=== PATIENT | male | born 1970 | race Caucasian/White ===

== ENCOUNTER 2017-12-27 19:52 | Emergency (ER) | payer OTHER ==
[~2017-12-27] VITALS: Ht 185.4 cm; Wt 122.9 kg
[~2017-12-27 19:52] MED LIST: ALBUTEROL S5 MG/1 ML INH; MONTELUKAST SOD10 MG; SINGULAIR10 MG; VENTOLIN HFA18 GM INH
[2017-12-27] MEDS ORDERED: BUPROPION HCL150 M2 PO (20:10)
[2017-12-27] MEDS ORDERED: LOSARTAN-HCTZ1 EAC1 PO (20:10)
--- NOTE | 2017-12-28 13:43 | EKG ---
[facility] [address] [facility] [place], [place] [address] Signed Sinus tachycardia Otherwise normal ECG No previous ECGs available Confirmed by WELLINGTON YAN MD ([id number]) on 12/28/2017 1:42:49 PM Electronically Signed By: WELLINGTON YAN MD 12/28/17 1343 PATIENT NAME: CRISPIN FUENTES LISA Electrocardiogram DATE OF : 66 PHYSICIAN: WELLINGTON YAN MD REPORT #: [id number] REPORT IS CONFIDENTIAL AND NOT TO BE RELEASED WITHOUT AUTHORIZATION
== END 2017-12-27 23:03 | disposition home or self-care (01) ==
LOC: ED 19:52
DX: R07.89 Other chest pain (principal); R93.8 Abnormal findings on diagnostic imaging of other specified body structures; I10 Essential (primary) hypertension; J45.909 Unspecified asthma, uncomplicated; Z79.899 Other long term (current) drug therapy
CPT/HCPCS: 71045; 80053; 84484; 85025; 85379; 93005; 93010; 99284

== ENCOUNTER 2018-01-17 14:16 | Emergency (ER) | payer OTHER ==
[~2018-01-17] VITALS: Ht 185.4 cm; Wt 119.3 kg
[~2018-01-17 14:16] MED LIST changes: +BUPROPION HCL150 M2 PO; +LOSARTAN-HCTZ1 EAC1 PO
--- NOTE | 2018-01-18 06:59 | EKG ---
[facility] [address] [facility] [place], [place] [address] Signed Normal sinus rhythm Low voltage QRS Borderline ECG When compared with ECG of 27-DEC-2017 19:55, No significant change was found Confirmed by JHON GILMORE MD ([id number]) on 01/18/2018 6:59:49 AM Electronically Signed By: JHON GILMORE MD 01/18/18 0659 PATIENT NAME: CRISPIN FUENTES LISA Electrocardiogram DATE OF : 66 PHYSICIAN: JHON GILMORE MD REPORT #: [id number] REPORT IS CONFIDENTIAL AND NOT TO BE RELEASED WITHOUT AUTHORIZATION
== END 2018-01-17 19:10 | disposition home or self-care (01) ==
LOC: ED 14:16
DX: R22.2 Localized swelling, mass and lump, trunk (principal); I10 Essential (primary) hypertension; J45.909 Unspecified asthma, uncomplicated; Z79.51 Long term (current) use of inhaled steroids; Z79.899 Other long term (current) drug therapy
CPT/HCPCS: 70450; 70496; 70498; 71260; 80053; 81001; 84484; 85025; 85610; 93005; 93010; 99284; Q9967

== ENCOUNTER 2021-04-17 21:35 | Emergency (ER) | payer OTHER ==
[~2021-04-17] VITALS: Ht 185.4 cm; Wt 117.9 kg
[~2021-04-17 21:35] MED LIST changes: -SINGULAIR10 MG; +SINGULAIR10 MG PO
[2021-04-18] MEDS ORDERED: POTASSIUM CHLO20 ME1 PO (00:01)
--- NOTE | 2021-04-18 12:55 | EKG ---
[facility] [address] [facility] [place] [address] Signed Normal sinus rhythm Inferior infarct , age undetermined Abnormal ECG When compared with ECG of 17-JAN-2018 14:26, QT has lengthened Confirmed by WELLINGTON YAN MD ([id number]) on 04/18/2021 12:55:07 PM Electronically Signed By: WELLINGTON YAN MD 04/18/21 1255 PATIENT NAME: SHERITANICHOLASCRISPIN Electrocardiogram DATE OF : 66 PHYSICIAN: WELLINGTON YAN MD REPORT #: [id number] REPORT IS CONFIDENTIAL AND NOT TO BE RELEASED WITHOUT AUTHORIZATION
[2021-04-19] MEDS ORDERED: ADVAIR HFA 230-12 GM INH (12:59)
== END 2021-04-18 03:00 | disposition home or self-care (01) ==
LOC: ED 21:35
DX: U07.1 COVID-19 (principal); J45.909 Unspecified asthma, uncomplicated; E87.6 Hypokalemia; I10 Essential (primary) hypertension; Z79.899 Other long term (current) drug therapy
CPT/HCPCS: 71045; 80053; 84484; 85025; 93005; 93010; 96374; 96375; 96376; 99285-25; C9803; J1100; J3480; M0243; Q0244; U0003

== ENCOUNTER 2021-04-19 12:00 | Inpatient (IN) | payer OTHER ==
[~2021-04-19] VITALS: Ht 185.4 cm; Wt 115.5 kg
[~2021-04-19 12:00] MED LIST changes: +POTASSIUM CHLO20 ME1 PO
--- OUTSIDE RECORDS SUMMARY | 2021-04-19 12:06 | XMS ---
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 Tyrese has no Care Guidelines for this patient. Thierry [facility] (12 MO.) [facility] T[facility] NOTE: Visits indicate total known visits. ED/C VISIT TRACKING (12 MO.) [facility] COMPLAINT: - COVID+,DIFFUCULTY BREATHING 04/17/2021 21:36 LISA Amin OR TYPE: Emergency COMPLAINT: - COUGH,SOB INPATIENT VISIT TRACKING (12 MO.) 09/01/2020 05:58 [facility] [place] TYPE: Cardiac Surgery DIAGNOSES: - Disorders of diaphragm 09/01/2020 00:00 [facility] [place] TYPE: Inpatient DIAGNOSES: - Disorders of diaphragm [email or web address]
[2021-04-19] MEDS ORDERED: ADVAIR HFA 230-12 GM INH (12:59)
--- NOTE | 2021-04-19 19:03 | NUR ---
THIS RN BROUGHT PT FROM THE ED TO THE CCU AT 1725. PT BROUGHT VIA STRETCHER ON 15L O2 NONREBREATHER MASK RECEVING HIS 500ML NS BOLUS ALONG WITH HIS BELONGINGS. PT ABLE TO STAND AND PIVOT FROM THE STRETCHER TO THE CCU BED. PT NOTED TO BECOME SOB, PT HAD TO LAY ON SIDE TO CATCH HIS BREATH. RT IN TO DRAW ABG, PT PLACED ON 15L O2 OXYMASK AFTERWARDS AND WAS ABLE TO MAINTAIN HIS SATURATIONS AT 95%. SPUTUM COLLECTED, AND WAS NOTED TO BE RED. LATER COUGHING FITS PRODUCED BLOODY/RED SPUTUM WELL BROWN SPUTUM. NEW 20G IV PLACED IN L FOREARM AND BLOOD CULTURES COLLECTED FROM RIGHT AND LEFT IV SITES. SCHEDULED MEDICATIONS AND IVF ADMINISTERED ORDERED (SEE MAR). PT ASSESSED, CRACKLES NOTED IN THE BASES BILATERALLY ALONG WITH A RUB ON THE RIGHT SIDE PRESENT MORE IN THE LOWER QUADRANT. PT ACKNOWLEDGES SOB WITH ACTIVITY AND STATES HE HAS A HARD TIME CATCHING HIS BREATH AT TIMES. DURING THIS TIME PT HAD A COUGHING FIT AND HAD TO SIT UP AT THE SIDE OF THE BED DUE TO A VERY PRODUCTIVE COUGH. PT DESATED TO 75% AND WAS PLACED ON THE NONREBREATHER AT 15L, PT THEN COACHED INTO TAKING SLOW AND DEEP BREATHS TO CALM HIM DOWN PT WAS ANXIOUS. HR NOTED TO BE IN THE 120'S AT THIS TIME, SP2 IN THE 89-92% RANGE AND RR IN THE 30-40/MIN RANGE. PT ABLE TO EVENTAULLY CALM DOWN AND LAY BACK IN THE BED, PRN COUGH MEDICATION ADMINISTERED AT THIS TIME (SEE MAR). PT PROVIDED WITH WATER AT THIS TIME AND IS NOW SITTING ON THE BED ON 15L NONREBREATHER, IVF AND IV ABX INFUSING ORDERED. PT REPORTS NO FURTHER NEEDS AT THIS TIME WHEN ASKED, WILL CONTINUE PLAN OF CARE AND GIVE REPORT TO THE NIGHTSHIFT RN TO CONTINUE PLAN OF CARE.
--- NOTE | 2021-04-19 19:05 | NUR ---
DR. YAN UPDATED ON PT ASSESSMENT AND CURRENT CONDITION AND OXYGEN DEMANDS, NEW ORDERS GIVEN TO NOTIFY RT TO PLACE PT ON THE VAPOTHERM. NEW ORDERS TO BE PLACED BY DR. YAN, WILL CONTINUE PLAN OF CARE.
--- NOTE | 2021-04-19 19:07 | NUR ---
RT CALLED AND NOTIFIED ON NEW ORDERS BY DR. YAN FOR PLACING PT ON THE VAPOTHERM, WILL CONTINUE PLAN OF CARE.
--- NOTE | 2021-04-19 19:30 | NUR ---
IN TO CHECK ON PT, PT IS RESTING IN BED WITH HOB UP, ON NRB 15L, RR 28, HR 115 AND SPO2 90%.
--- NOTE | 2021-04-19 19:40 | NUR ---
AWAITING ANXIETY MEDICATIONS RECENTLY ORDERED BY DR YAN TO BE VERIFITED BY PHARMACY. PT INFORMED OF THIS, SPO2 90%, RR 30, HR 110, STATES HE IS FEELING ANXIOUS. ENCOURAGED LONGER BREATHS AND TRYING TO RELAX.
--- NOTE | 2021-04-19 20:00 | NUR ---
ASSESSMENT DONE, LUNGS HAVE RHONCHI THROUGHOUT, DIM IN BASES, RUB HEARD ON RIGHT SIDE AND EXP WHEEZE HEARD THROUGHOUT. PT IS SOMEWHAT ANXIOUS, RESP SHALLOW AND RATE OF 30, EDUCATION DONE REGARDING SLOWING DOWN HIS BREATHING WELL IMPORTANCE OF PRONING.
--- NOTE | 2021-04-19 20:10 | NUR ---
PT TURNED ONTO HIS LEFT SIDE, SPO2 WENT FROM 89% TO 83%, PT EVEN MORE SOB. HAD PT TAKE DEEP BREATHS AND RELAX, SATS SLOWLY UP TO 87%. RT NOTIFIED, WILL COME IN AND SET UP VAPOTHERM.
--- NOTE | 2021-04-19 20:17 | NUR ---
RT IN TO SET UP VAPOTHERM.
--- NOTE | 2021-04-19 20:28 | NUR ---
RT STARTING NEB TREATMENT.
--- NOTE | 2021-04-19 21:22 | NUR ---
PT CALLS TO SAY HIS VAPOTHERM IS STOPPING WORKING. EDUCATED ON TWISTING OF THE TUBING. SPO2 HAS BEEN 93-95%, HR 99, RR 20, MUCH MORE RELAXED AT THIS TIME.
--- NOTE | 2021-04-19 22:19 | NUR ---
CALL LIGHT ON. pt REQUESTED ASSISTANCE TO ROLL TO LEFT SIDE. ASSISTED WITH CABLES. EMPTIED DARK URINE. PROVIDED FRESH WATER O2 SAT 98% ON 35L/100%. CALL LIGHT WITHIN REACH.
--- NOTE | 2021-04-19 23:03 | NUR ---
PT CALLED TO GET UP TO BSC WITH URGE TO HAVE BOWEL MOVEMENT BUT DID NOT HAVE ONE, VOIDED 300ML. SPO2 REMAINED IN 90'S WHILE UP, VAPOTHERM ON AT 35L/100% ALTHOUGH RESP RATE WENT UP TO 34 WITH INCREASED SOB, AND WENT BACK DOWN TO 24 AFTER HE SETTLED BACK INTO BED. HR DID GO UP TO 120 BRIEFLY WHILE UP, THEN BACK DOWN TO 100 IN BED. CALL LIGHT IN HAND.
--- NOTE | 2021-04-20 01:06 | NUR ---
PT CALLS TO ASK FOR ANXIETY MEDICATION, IN TO DO ASSESSMENT AND GIVE PRN VISTARIL WELL A NEB TX. PT HAS SOME PRODUCTIVE COUGHING, SPO2 HAS BEEN 96% ON 35L/100% WITH RR 26 AND HR 105. LUNGS HAVE COARSE CRACKLES IN BASES, RHONCHI THROUGHOUT WELL. POPSICLE GIVEN PER REQUEST.
--- NOTE | 2021-04-20 02:00 | NUR ---
PT GOT UP TO BSC TO HAVE LIQUID BOWEL MOVEMENT, THEN BACK TO BED. SPO2 REMAINED NINETIES WHILE UP. HR 110.
--- NOTE | 2021-04-20 04:23 | NUR ---
PT CALLED TO STATE THAT HE FELT BLOATED, C/O ABD DISTENSION. "ITS BEEN OFF AND ON TODAY". ASSESSMENT DONE, BOWEL SOUNDS HYPERACTIVE. PT REQUESTS LAXATIVE.
--- NOTE | 2021-04-20 05:25 | NUR ---
PT GIVEN PRN MAALOX, HE ALSO GOT UP AND HAD A SMALL FORMED BOWEL MOVEMENT. ASKED IF HE WANTS A NEB TX AND HE STATES YES.
--- NOTE | 2021-04-20 06:26 | NUR ---
PT CALLED TO ASK FOR ANXIETY MEDICINE, WILL GIVEN PRN VISTARIL.
--- NOTE | 2021-04-20 06:46 | NUR ---
PT STATES HE DOES NOT WANT THE ANXIETY PILL, AND THAT HE NEEDS "THE SHOT", EXPLAINED THAT THE IV ATIVAN WAS A ONE TIME ORDER AND HE STATED "THE PILLS DONT DO ANYTHING," AND DID NOT APPEAR HAPPY ABOUT IT.
--- NOTE | 2021-04-20 07:30 | NUR ---
REPORT RECIEVED. PATIENT ASKING FOR MEDICATION TO HELP HIM RELAX. TOLD PATIENT I WOULD TALK TO THE DOCTOR ABOUT THIS.
--- NOTE | 2021-04-20 08:10 | NUR ---
Spoke with Mitchel Yeboah. She requests no visit or call for assessment as pt is sob. Will check tomorrow.
--- NOTE | 2021-04-20 09:00 | NUR ---
PATIENT RESTING IN BED, VITALS CHARTED. PATIENTS NOSTRILS ARE DRY AND IRRITATED, WARM WASHCLOTH PROVIDED TO CLEAN BLOOD ON FACE/LIPS. BREAKFAST PROVIDED, PATIENT APPEARED TO STRUGGLE WITH CUTTING BITES WITH FORK, BUT DIDN'T WANT ASSISTANCE. JOE BUSBY IN ROOM NOW.
--- NOTE | 2021-04-20 09:20 | NUR ---
OOB TO COMMODE TO VOID 225 ML OF KEATON URINE. SPONGE BATH GIVEN WHILE OOB AND DRAW SHEET CHANGED. UPON STANDING TO RETURN TO BED, PATIENT VERY UNSTEADY ON FEET. EXTREMELY SHORT OF BREATH, RR-50.
--- NOTE | 2021-04-20 09:40 | NUR ---
CUETO CATH PLACED W/O DIFFICULTY WITH RETURN OF 350 ML OF CLEAR YELLOW URINE. PATIENT CONTINUE WITH EXTREME SHORTNESS OF BREATH. ASKING FOR MORE CALMING MEDICATION. DR. YAN AWARE.
--- NOTE | 2021-04-20 10:00 | NUR ---
ATIVAN 1 MG IV REPEATED PER ORDERS,
--- NOTE | 2021-04-20 10:38 | NUR ---
REQUESTED RT TO COME AND ASSESS PATIENT PATIENT WORK OF BREATHING IS HARD AND RR-48 TO 50. VAPOTHERM SETTING 40 L AND 80 % FIO2. HAS SEA-SAW RESP PATTERN. PATIENT HAS RECIEVED ATIVAN 1 MG IV TWICE THIS SHIFT. RT TO TALK WITH DR. YAN.
--- NOTE | 2021-04-20 10:43 | NUR ---
PLAN FOR INTABATION.
--- NOTE | 2021-04-20 10:45 | NUR ---
DR. YAN HERE TO ASSESS PATIENT AND TALK WITH HIM ABOUT INTABATION.
--- NOTE | 2021-04-20 11:30 | NUR ---
INTABATED W/O DIFFICULTY BY CECILY SARMIENTO USING SIZE 8 ETT TAPED 24 AT LIP. PCXR CONFIRMED PLACEMENT. PROPOFOL DRIP HUNG AT 30 MCG/KG/MIN. VENT SETTINGS PER RT. VT-650,FIO2-60,AC-16,PEEP=10,PIP-32,ETCO2-66. WILL CONTINUE TO MONITOR.
--- NOTE | 2021-04-20 12:00 | NUR ---
ASSESSMENT DONE. CUETO CATH PATENT AND EMPTIED FOR 450 ML OF CLEAR YELLOW URINE. IVF DC'D. KCL RIDER AND PROPOFOL GTT INFUSING.
--- NOTE | 2021-04-20 12:45 | NUR ---
ORAL SUCTION FOR LARGE AMOUNT OF BLOODY SPUTUM.
--- NOTE | 2021-04-20 13:25 | NUR ---
ABG RESULTS, PH-7.42, PCO2-37.6,PO2-78,HCO3-24.1,SAT-95.6. THESE RESULTS ON VENT SETTINGS OF: TV-480,FIO2-55,PEEP-10,AC-28,PIP-30,ETCO2-48. SUCTIONED FOR MOD AMOUNT OF BLOODY SPUTUM.
--- NOTE | 2021-04-20 14:00 | NUR ---
fentanyl 100 mcg iv given.
--- NOTE | 2021-04-20 14:30 | EKG ---
[facility] [address] [facility] [place] [address] Signed Sinus tachycardia Inferior infarct (cited on or before 17-APR-2021) Abnormal ECG When compared with ECG of 17-APR-2021 21:54, Nonspecific T wave abnormality now evident in Anterolateral leads QT has shortened Confirmed by WELLINGTON YAN MD ([id number]) on 04/20/2021 2:29:50 PM Electronically Signed By: WELLINGTON YAN MD 04/20/21 1430 PATIENT NAME: CRISPIN FUENTES LISA Electrocardiogram DATE OF : 66 PHYSICIAN: WELLINGTON YAN MD REPORT #: [id number] REPORT IS CONFIDENTIAL AND NOT TO BE RELEASED WITHOUT AUTHORIZATION
--- NOTE | 2021-04-20 14:38 | NUR ---
MED REC COMPLETE
--- NOTE | 2021-04-20 14:50 | NUR ---
FLIGHT TEAM HERE TO TRANSFER PATIENT TO [facility]. REPORT TO THEM.
--- NOTE | 2021-04-20 15:30 | NUR ---
REPORT PHONED TO AMY AT [facility].
--- NOTE | 2021-04-20 15:53 | NUR ---
to [facility] VIA [facility].
== END 2021-04-20 15:20 | disposition short-term general hospital (02) | DRG 208 ==
LOC: ED 12:00 → CCU 15:40
PROVIDERS: ADMIT Internal Medicine; ATTEND Internal Medicine
PROC: 0BH17EZ Insertion of Endotracheal Airway into Trachea, Via Natural or Artificial Opening (ICD-10-PCS; principal; 2021-04-19)
PROC: 5A1935Z Respiratory Ventilation, Less than 24 Consecutive Hours (ICD-10-PCS; 2021-04-19)
PROC: 8E0ZXY6 Isolation (ICD-10-PCS; 2021-04-19)
PROC: 3E0333Z Introduction of Anti-inflammatory into Peripheral Vein, Percutaneous Approach (ICD-10-PCS; 2021-04-19)
PROC: XW033E5 Introduction of Remdesivir Anti-infective into Peripheral Vein, Percutaneous Approach, New Technology Group 5 (ICD-10-PCS; 2021-04-19)
DX: U07.1 COVID-19 (principal); J96.01 Acute respiratory failure with hypoxia; J15.9 Unspecified bacterial pneumonia; E87.1 Hypo-osmolality and hyponatremia; J12.82 Pneumonia due to coronavirus disease 2019; E87.6 Hypokalemia; K75.2 Nonspecific reactive hepatitis; E86.0 Dehydration; J45.40 Moderate persistent asthma, uncomplicated; I10 Essential (primary) hypertension; F41.9 Anxiety disorder, unspecified; F39 Unspecified mood [affective] disorder; Z98.890 Other specified postprocedural states; Z79.899 Other long term (current) drug therapy
CPT/HCPCS: 31500; 36600; 71045; 80053; 82803; 83735; 84484; 85007; 85025; 87040; 93005; 93010; 94002; 94640; 94667; 94668; 94799; 99285-25; A9270; C9113; J0330; J0456; J0696; J1100; J2001; J2060; J2250; J2704; J3010; J3480; J7030; J7050; J7060; J7121; Q0177

== ENCOUNTER 2021-06-10 16:11 | Inpatient (IN) | payer OTHER ==
[~2021-06-10] VITALS: Ht 185.4 cm; Wt 102.1 kg
--- NOTE | ~2021-06-10 | EKG ---
[facility] [address] [facility] [place], [place] [address] Draft EK completed, results pending confirmation PATIENT NAME: ALFREDOCRISPIN Electrocardiogram DATE OF : 66 PHYSICIAN: PRELIMINARY REPORT #: [id number] REPORT IS CONFIDENTIAL AND NOT TO BE RELEASED WITHOUT AUTHORIZATION
[~2021-06-10 16:11] MED LIST changes: +ADVAIR HFA 230-12 GM INH; -BUPROPION HCL150 M2 PO
[2021-06-10] MEDS ORDERED: WELLBUTRIN SR200 MG PO (16:36)
[2021-06-10] MEDS ORDERED: ELIQUIS5 MG PO (16:36)
[2021-06-10] MEDS ORDERED: FLUTICASONE PRO16 GM NAS (16:36)
--- NOTE | 2021-06-10 21:08 | NUR ---
REPORT RECEIVED FROM [facility] ED.
--- NOTE | 2021-06-10 21:31 | NUR ---
2124 - PT ARRIVED FROM ED VIA STRETCHER, ACOMPANIED BY RAY CARRANZA AND FAMILY
--- NOTE | 2021-06-10 23:55 | NUR ---
AWAKE, WATCHING TV, O2 4LNC, IVF INFUSING W/O PROBLEMS, COMPLETED MAG RIDER AND TOOK 2 PO K TABS W/O PROBLEMS, CONT TO HAVE OCC MOIST PRODUCTIVE COUGH, RECEIVED COUGH SYRUP EARLIER ON ADMIT. STATED HE IS OK, HOB ELEVATED TO COMOFRT. HAS VOIDED QS
--- NOTE | 2021-06-11 02:00 | NUR ---
AWAKES EASILY, ON 6LNC, LUNGS NO CHANGES. IRREGULAR DIAPHRAGM RAISING DUE TO L DIAPHRMAG PARALIZED SINCE TUMOR REMOVAL SURGERY, TE[facility] IN PLACE[facility], SASTS 99%. REPOSITIONS SELF IN BED. CALL LIGHT AND FLUDIS AT BEDSIDE, IVF INFUSING
--- NOTE | 2021-06-11 06:22 | NUR ---
pt has slept off and on. Flat affect, on 6L nc, (chronic at home 3l am and 4L hs) irregular diaphram elevateion due to Paralized left diaphagm area from previous surgery. L lung very diminish, fine crackles R base, sob with exertion noted, increeaed respiration and pulse noted with exertion no decrease on sats. tele/cpox #[address], SV TAch rhythm, uses urinal cooperative, has 2 iv sites, no c/o adverse reaction to iv abx and ivf. tolerating liquids well, no emesis,
--- NOTE | 2021-06-11 07:22 | EKG ---
[facility] [address] [facility] [place], [place] [address] Signed Sinus tachycardia Cannot rule out Inferior infarct (cited on or before 17-APR-2021) Abnormal ECG When compared with ECG of 10-JUN-2021 16:35, (Unconfirmed) Nonspecific T wave abnormality no longer evident in Lateral leads Confirmed by JHON GILMORE MD ([id number]) on 06/11/2021 7:22:18 AM Electronically Signed By: JHON GILMORE MD 06/11/21721 PATIENT NAME: CRISPIN FUENTES LISA Electrocardiogram DATE OF : 66 PHYSICIAN: JHON GILMORE MD REPORT #: [id number] REPORT IS CONFIDENTIAL AND NOT TO BE RELEASED WITHOUT AUTHORIZATION
[2021-06-11] MEDS ORDERED: BUPROPION HCL150 M2 PO (07:45)
[2021-06-11] MEDS ORDERED: DIPHENOXYLATE-A60 ML PO (07:46)
--- NOTE | 2021-06-11 09:20 | NUR ---
ROBITUSSIN DM 5ML ADMIN FOR COUGH.
--- NOTE | 2021-06-11 10:59 | NUR ---
Patients resperations were 32. Call light is in reach.
[2021-06-11] MEDS ORDERED: VITAMIN D350 MCG PO (11:14)
--- NOTE | 2021-06-11 11:15 | NUR ---
Spoke with pt and he was placed on a vent in March from [employer] and ship- ped to [facility]. He has had a slow recovery and remains on 02 at home 3-4 L. States he is easily fatigued and tires walking in his house. He lives with his spouse and she assists him. He uses 02 from [employer]. He will need to go home with [employer] tank as took his tank home. Left a note on the chart to dc with a portable tank to home. Pt denies other needs.
--- NOTE | 2021-06-11 11:15 | NUR ---
MED REC COMPLETE
--- NOTE | 2021-06-11 12:10 | NUR ---
PT ALERT, ORIENTED AND SITTING UP IN BED NC IN USE WATCHING TV. PT MENTIONED HE IS FEELING BETTER, BUT FAR FROM WHAT HE WOULD LIKE. HAD PLEASANT VISIT, GAVE ENCOURAGEMENT. HAD PRAYER WITH PT, WILL FOLLOW NEEDED
--- NOTE | 2021-06-11 13:52 | NUR ---
Patient vitals, I&Os are complete. Patient has no requests at this time. Pulse was 108. Call light is in reach.
--- NOTE | 2021-06-11 14:28 | NUR ---
Patient sitting up in bed eating lunch, a&ox4. Patient denies shortness of breath. IV sites are patient, abx's started per provider order. Patient reports he feels better today. Patient reports he consumed 50% of his lunch. Patient has no needs at this time. Encouraged patient to call staff if he has needs.
--- NOTE | 2021-06-11 16:52 | NUR ---
Patient visiting with family member at this time. Patient denies distress or needs. Pt continues on 4L of oxygen per nc, respirations even and non labored. Personal supplies and call light within reach.
--- NOTE | 2021-06-11 17:43 | NUR ---
Patient's is in room. Call light is in reach. Vitals, I&Os are complete.
--- NOTE | 2021-06-11 18:02 | NUR ---
Patient is tachy at this time, heart rate low 130's, non sustained. In to check on patient, pt reports he was having a "coughing episode". Oxygen increaesd to 6L by RT at this time, sp02 92%, pt continuing to cough intermittently. Pt able to talk to me clearly, appears to be recovering from coughing fit. RT at bedside to admin a breathing treatment at this time. at bedside. No needs from this RN at this time. Will continue to monitor pt.
--- NOTE | 2021-06-11 19:18 | NUR ---
Patient resting in bed, no distress or coughing. SP02 96% on 5L, titrated to 4L at this time. Patient reports he is much better at this time. No current needs. Personal supplies and call light within reach.
--- NOTE | 2021-06-11 19:46 | NUR ---
SHIFT REPORT HAS BEEN RECEIVED FROM JOE CANCHOLA. PATIENT RESTING QUIETLY IN BED WATCHING TV. PATIENT HAS NO CURRENT CARE NEEDS AND CALL LIGHT IS IN REACH.
--- NOTE | 2021-06-11 21:15 | NUR ---
PATIENT ASKED FOR SOME COUGH DROPS AND NIO ORDER PUT IN AND 1 ERIC. GIVEN. PATIENT ALSO TOOK SOME MELATONIN AND COUGH SYRUP PRN'S FOR THE EVENING. PATIENT'S PM ASSESSMENT COMPLETE AND PM MEDS GIVEN. ICE WATER IS FULL AND PATIENT IS WARM ENOUGH. PATIENT HAS NO OTHER CARE NEEDS AT THIS TIME. CALL LIGHT IS IN REACH.
--- NOTE | 2021-06-11 22:43 | NUR ---
PATIENT RESTING IN BED WATCHING SOMETHING ON HIS PHONE. NEW ICE WATER GIVEN THAT WAS REQUESTED. PATIENT HAS NO OTHER CARE NEEDS AT THIS TIME. CALL LIGHT IS IN REACH.
--- NOTE | 2021-06-11 23:57 | NUR ---
PATIENT'S TELE BATTERY CHANGED. PATIENT STILL DOING THINGS ON HIS PHONE. URINAL EMPTIED. PATIENT HAS NO OTHER CARE NEEDS AT THIS TIME. CALL LIGHT IS IN REACH.
--- NOTE | 2021-06-12 01:35 | NUR ---
PATIENT RESTING QUIETLY IN SEMI-FOWLERS POSITION, EYES CLOSED, RESPIRATIONS AR REGULAR AND EVEN, CALL LIGHT IS IN REACH. NO NOTES CARE NEEDS AT THIS TIME.
--- NOTE | 2021-06-12 02:48 | NUR ---
NEW MAINLINE IV BAG HUNG AND PATIENT'S URINAL EMPTIED. PATIENT REQUESTED A NEW GLASS OF ICE WATER WHICH WAS GIVEN. PATIENT HAD NO OTHER NEEDS AT THIS TIME AND CALL LIGHT IS IN REACH.
--- NOTE | 2021-06-12 05:41 | NUR ---
PATIENT HAS BEEN ABLE TO GET A LITTLE SLEEP. COUGH MEDICATION GIVEN REQUESTED AND AM ANTIBIOTICS STARTED. IV TO RIGHT HAND REINFORCED WITH TAPE. NEW ICE WATER GIVEN AND URINAL EMPTIED. PATIENT ALSO GIVEN TYLENOL FOR 6/10 HEADACHE. PATIENT HAS NO OTHER NEEDS AT THIS TIME. CALL LIGHT IS IN REACH.
--- NOTE | 2021-06-12 06:37 | NUR ---
PATIENT'S SECOND AM ANTIBIOTIC IS UP AND RUNNING. PATIENT SPILLED SOME WATER ON HIS GOWN AND LINENS, SO GOWN AND LINEN CHANGED. PATIENT HAD NO OTHER CARE NEEDS AT THIS TIME. CALL LIGHT IS IN REACH.
--- NOTE | 2021-06-12 07:16 | NUR ---
SHIFT REPORT GIVEN TO JOE CANCHOLA. PATIENT HAS NO CURRENT CARE NEEDS. CALL LIGHT IS IN REACH.
--- NOTE | 2021-06-12 07:37 | NUR ---
Patient resting in bed, respirations even and non labored, no notable distress. Patient on 4L oxygen per nc, sp02 95% at this time. IV fluids/abx infusing per provider order. Call light within reach.
--- NOTE | 2021-06-12 09:49 | NUR ---
PT LAYING IN BED. VITALS AND I&O'S DONE. PT INITALLY REFUSED CHAIR, BUT NOW SAY THEY WILL THINK ABOUT IT. ROOM TIDIED.
--- NOTE | 2021-06-12 12:22 | NUR ---
Patient assisted to restroom and back to bed. Patient had notable sob with activity, sp02 decreased to 86% on 4L, increased to 7L while up-sp02 increased to 91%. Patient also tachy with activity, heart rate increased to 133bpm while on toilet then decreased back to 100-110bpm once back to bed. Patient reports coughing fits during activity. Pt stable at this time. Personal supplies and call light within reach.
--- NOTE | 2021-06-12 15:03 | NUR ---
PATIENT IN BED WATCHING TV, VISITOR IN ROOM. VITALS AND I&O'S CHARTED. FRESH WATER GIVEN. CALL LIGHT IN REACH. NO FURTHER NEEDS AT THIS TIME.
--- NOTE | 2021-06-12 17:13 | NUR ---
Patient placed back to 4L at this time, sp02 99% at this time. Patient has no respiratory distress at this time. No current needs. Personal supplies and call light within reach.
--- NOTE | 2021-06-12 19:42 | NUR ---
PAIENT RESTING QUIETLY IN BED ON 4L/NC. O2 SATS=94 AND TP=857 ON CPOX. NO CURRENT CARE NEEDS. CALL LIGHT IS IN REACH.
--- NOTE | 2021-06-12 21:20 | NUR ---
PATIENT'S EVENING VANCO WAS HUNG AND PATIENT REQUESTED COUGH SYRUP WHICH WAS GIVEN. PATIENT ON THE PHONE AND HAS NO OTHER NEEDS AT THIS TIME. CALL LIGHT IS IN REACH.
--- NOTE | 2021-06-12 22:15 | NUR ---
PATIENT GIVEN MELATONIN FOR SLEEP WITH HIS REGULAR EVENING MEDS. VS STBLE AND I+O RECORDED. PATIENT DENIES ANY PAIN OR DISCOMFORT. ICE WATER REFILLED. PATIENT'S RIGHT HAND IV LEAKING AND SORE AND WAS DC'D INTACT. URINAL EMPTIED AND PATIENT VOIDING QUANTITY SUFFICIENT. PATIENT REMAINS ON 4L/NC WITH O2 SATS=95%. PATIENT HAS NO OTHER CARE NEEDS AT THIS TIME. CALL LIGHT IS IN REACH.
--- NOTE | 2021-06-13 01:11 | NUR ---
PATIENT RESTING QUIETLY TURNED TO HIS RIGHT IN JACEK-FOWLERS POSITION, EYES CLOSED, RESPIRATIONS REGULAR AND EVEN. O2 TQZX=473% ON 4L/NC WITH A NP=297 ON TELE. PATIENT HAS NO CURRENT CARE NEEDS. CALL LIGHT IS IN REACH.
--- NOTE | 2021-06-13 01:45 | NUR ---
PATIENT CALLED AND HAS A HEADACHE REQUESTING TYLENOL WHICH WAS GIVEN. ICE WATER REFILLED AND URINAL EMPTIED. PATIENT HAD NO OTHER CARE NEEDS AT THIS TIME. CALL LIGHT IS IN REACH.
--- NOTE | 2021-06-13 03:15 | NUR ---
IN TO REPLACE TELE CAYLA, FRESH ICE WATER GIVEN, NO FURTHER NEED AT THIS TIME
--- NOTE | 2021-06-13 03:26 | NUR ---
PATIENT'S TELE/CPOX BATTERY WAS REPLACED BY TRACE GUEVARA. PATIENT HAS BEEN RESTING QUIETLY AND HAS NO CURRENT CARE NEEDS. O2 JNV=641% ON 4L/NC AND HR=86 IN NSR PER TELE/CPOX. CALL LIGHT IS IN REACH.
--- NOTE | 2021-06-13 05:15 | NUR ---
PATIENT'S AM VANCO HUNG AND IS RUNNING. PATIENT HAS NO CARE NEEDS AT THIS TIME AND APPEARS TO BE STILL SLEEPING. O2 SAT 92% ON 4L/NC. CALL LIGHT IS IN REACH.
--- NOTE | 2021-06-13 06:30 | NUR ---
AM CEFEPIME HUNG AND AM ASSESSMENT COMPLETE. TRACE GUEVARA GETTING VS AND PATIENT HAS NO CURRENT CARE NEEDS. CALL LIGHT IS IN REACH.
--- NOTE | 2021-06-13 09:23 | NUR ---
PT AWAKE IN BED WATCHING TV. CALL LIGHT IS REACH. NO FURTHER NEEDS AT THIS TIME
--- NOTE | 2021-06-13 09:42 | NUR ---
Patient is awake watching tv in bed, recently up in chair for his breakfast. Patient denies shortness of breath, respirations even and non labored. Pt is on 3L nc, sp02 94% at this time. Patient reports he would like to go home today, encouraged him to speak with Dr. Cagle about goals and plan of care for this visit when she does her patient rounding with him, pt receptive to this plan. No current needs. Personal supplies and call light within reach.
--- NOTE | 2021-06-13 14:33 | NUR ---
PT'S UNABLE TO MAKE IT UP TO SEE THEM TODAY. DUE TO THIS, PT IS DELAYING SHOWER UNTIL CAN BE HERE TO ASSIST. VS AND I&O'S DONE. ROOM TIDIED. ICE WATER REFRESHED. NO FURTHER NEEDS AT THIS TIME. CALL LIGHT WITHIN REACH.
--- NOTE | 2021-06-13 18:55 | NUR ---
PT RESTING IN BED WATCHING TV. ICE WATER REFRESHED. CALL LIGHT WITHIN REACH. NO FURTHER NEEDS AT THIS MOMENT.
--- NOTE | 2021-06-13 19:35 | NUR ---
SHIFT REPORT RECEIVED FROM JOE CANCHOLA. PATIENT DENIES ANY CARE NEEDS AT THIS TIME. URINAL EMPTIED. CALL NIGHT IS IN REACH.
[2021-06-13] MEDS ORDERED: DOXYCYCLINE HY100 MG PO (19:47)
[2021-06-13] MEDS ORDERED: PREDNISONE20 MG PO (19:49)
--- NOTE | 2021-06-13 20:14 | NUR ---
PATIENT SITTING UP IN BED WATCHING TV. VITALS AND I&O'S CHARTED. FRESH WATER GIVEN. CALL LIGHT IN REACH. NO FURTHER NEEDS AT THIS TIME.
--- NOTE | 2021-06-13 20:42 | NUR ---
PATIENT HAS TAKEN HIS EVENING MEDS ALONG WITH SOME COUGH SYRUP FOR COUGH. PATIENT WAS TURNED DOWN TO 2L/NC AT ABOUT 1930 AND SATS HAVE REMAINED IN THE MID TO HIGH 90'S%. PATIENT URINAL EMPTIED AND CALL LIGHT IS IN REACH. PATIENT'S ICE WATER WAS REFILLED BY THE POWER MACHINE OPERATOR. PATIENT HAS NO OTHER CARE NEEDS AT THIS TIME.
--- NOTE | 2021-06-13 22:35 | NUR ---
PATIENT DOING QUALIFICATION TEST FOR HOME O2 WITH RT. KEVIN
--- NOTE | 2021-06-13 23:03 | NUR ---
PATIENT BACK IN BED AT 94% O2 SAT ON 2L/NC. PATIENT HAD DROPPED LOW 77% WHILE UP WALKING. PATIENT RESTING IN BED WITH NO CURRENT CARE NEEDS. CALL LIGHT IS IN REACH.
--- NOTE | 2021-06-13 23:52 | NUR ---
June 13, [id number]. Evaluation of patient for oxygen needs on transfer home, posited to be tomorrow, was performed. RA at rest was 86% saturation with pulse of 101; NC/2LPM at rest was 90-92% with pulse at 98. On ambulation in toscano, approximated 150 feet, saturation decreased rapidly and 4LPM was required for reaching a saturation of 92% with pulse of 101. The same amount was required for 10 minutes of recovery, at which the oxygen was decreased to 2LPM again with saturations of 92%. Evaluation: on discharge patient will need oxygen per nasal cannula at 2LPM for rest and 4LPM with any activity.
--- NOTE | 2021-06-14 00:31 | NUR ---
PATIENT RESTING QUIETLY IN SEMI-FOWLERS POSITION, EYES CLOSED, RESPIRATIONS SHALLOW AND REGULAR, O2 SAT=91% ON 2L/NC WITH HR=98 IN NSR ON TELE MONITOR. CALL LIGHT IS IN REACH.
--- NOTE | 2021-06-14 02:08 | NUR ---
PATIENT RESTING QUIETLY WITH EYES CLOSED IN JACEK-FOWLERS POSITION, RESPIRATIONS ARE REGULAR AND EVEN ON 2L/NC, O2 SATS=97%, PATIENT'S URINAL EMPTIED, AND CALL LIGHT IS IN REACH. PATIENT HAS NO OTHER CURRENT CARE NEEDS AT THIS TIME.
--- NOTE | 2021-06-14 02:54 | NUR ---
PATIENT REQUESTED NEW ICE WATER AND THIS WAS GIVEN. URINAL EMPTIED. PATIENT HAD NO OTHER CARE NEEDS AT THIS TIME. O2 AND RESPIRATORY STATUS ARE UNCHANGED. CALL LIGHT IS IN REACH.
--- NOTE | 2021-06-14 05:07 | NUR ---
WENT INTO ROOM TO CHANGE TELE/CPOX BATTERY. PATIENT WOKE UP. AM ANTIBIOTICS HUNG AND AM ASSESSMENT COMPLETE. PATIENT'S VS ARE STABLE AND PATIENT HAS DONE WELL ALL NIGHT ON 2L/NC AND SATS=97% AT THIS TIME WITH A TELE HR=96. PATIENT'S ICE WATER REFILLED AND I+O RECORDED. PATIENT HAS NO OTHER CARE NEEDS AT THIS TIME. CALL LIGHT IS IN REACH AND PATIENT IS GOING TO TRY AND GET A LITTLE MORE SLEEP.
--- NOTE | 2021-06-14 06:42 | NUR ---
WENT IN AND HUNG PATIENT'S NEXT ANTIBIOTIC AND EMPTIED PATIENT'S URINAL. PATIENT HAS NO CURRENT CARE NEEDS AND CALL LIGHT IS IN REACH.
--- NOTE | 2021-06-14 07:19 | NUR ---
REPORT RECIEVED FROM SKEIN BANDER RNRAUL.
--- NOTE | 2021-06-14 07:28 | NUR ---
MORNING ASSESSMENT DONE. PATIENT BACK IN BED AFTER GOING TO BATHROOM. PATIENT ASKED TO REMAIN ON 4L FOR 10 MINUTES OR SO BEFORE RETURNING TO 2L @ REST. PATIENT DENIES PAIN OR NAUSEA THIS MORNING. BREATH SOUNDS ARE DIM TO LEFT LUNG, PATIENT REPORTS THIS IS HIS USUAL.
--- NOTE | 2021-06-14 08:19 | NUR ---
DR. GILMORE IN TO SEE PATIENT.
--- NOTE | 2021-06-14 08:41 | NUR ---
PT ACCEPTED CHAIR. ROOM TIDIED, ICE WATER REFRESHED. CALL LIGHT WITHIN IN REACH. NO FURTHER NEEDS AT THIS TIME.
--- NOTE | 2021-06-14 09:35 | NUR ---
PT LAYING IN BED WAITING FOR . PT PLANS ON SHOWERING WITH 'S HELP WHEN SHE GETS HERE. VS AND I&O'S DONE. ICE WATER REFRESHED, ROOM TIDIED. NO FURTHER NEEDS AT THIS TIME. CALL LIGHT WITHIN REACH. BATHROOM PREPPED AND READY FOR SHOWER.
--- NOTE | 2021-06-14 09:45 | NUR ---
PATIENT IS AWAITING SPOUSE ARRIVAL WITH PORTABLE O2 TANK. RIGHT ARM IV REMOVED WITH CATHETER INTACT AND PATIENT IS PLANNING TO TAKE A SHOWER WHEN SPOUSE IS HERE, PRIOR TO DISCHARGE.
--- NOTE | 2021-06-14 10:03 | NUR ---
PATIENT'S IN ROOM. PATIENT IS UP TO TAKE A SHOWER. TELE OFF, CALL TO CCU THAT PATIENT WAS DISCHARGING HOME SOON.
--- NOTE | 2021-06-14 10:43 | NUR ---
Spoke with pt and , he is sob after dressing to go home. brought an 02 tank, but it is close to being out. Informed we will send with a tank from [facility]. Faxed Face sheet, H&P, Dc summary, Rx, and 02 qualifier to [facility] for update. Called and updated we are sending with one of their portable tanks. They will deliver more tanks today.
--- NOTE | 2021-06-14 13:26 | NUR ---
PT TO DC TODAY. SITTING IN CHAIR DRESSED AND LOOKING OUT WINDOW-PT ON NC O2 AND SEEMED TO GET WINDED IN CONVERSATION. PT REQUESTED PRAYER, WILL FOLLOW.
== END 2021-06-14 10:55 | disposition home or self-care (01) | DRG 193 ==
LOC: ED 16:11 → MS 21:08
PROVIDERS: ADMIT Internal Medicine; ATTEND Internal Medicine
DX: J15.9 Unspecified bacterial pneumonia (principal); J96.01 Acute respiratory failure with hypoxia; Z86.16 Personal history of COVID-19; J45.909 Unspecified asthma, uncomplicated; I10 Essential (primary) hypertension; Z79.899 Other long term (current) drug therapy; Z79.01 Long term (current) use of anticoagulants
CPT/HCPCS: 71045; 71260; 80048; 80053; 80202; 83605; 83735; 83880; 84484; 85025; 87040; 93005; 93010; 94640; 94668; 94760; 94761; 99285-25; C9803; J0692; J2920; J3370; J3475; J3480; J7030; J7060; J7512; Q9967

== ENCOUNTER 2025-05-23 23:23 | Emergency (ER) | payer OTHER ==
[~2025-05-23] VITALS: Ht 185.4 cm; Wt 100.0 kg
[~2025-05-23 23:23] MED LIST changes: +BUPROPION HCL150 M2 PO; +DIPHENOXYLATE-A60 ML PO; +DOXYCYCLINE HY100 MG PO; +ELIQUIS5 MG PO; +FLUTICASONE PRO16 GM NAS; +PREDNISONE20 MG PO; +VITAMIN D350 MCG PO; +WELLBUTRIN SR200 MG PO
[2025-05-24 01:22] VITALS: BP 141/105
== END 2025-05-24 01:22 | disposition home or self-care (01) ==
LOC: ED 23:23
DX: I10 Essential (primary) hypertension (principal); T46.5X6A Underdosing of other antihypertensive drugs, initial encounter; J45.909 Unspecified asthma, uncomplicated; Z91.148 Patient's other noncompliance with medication regimen for other reason; Z79.51 Long term (current) use of inhaled steroids; Z79.899 Other long term (current) drug therapy
CPT/HCPCS: 99283